=== PATIENT | male | born 1970 | race Caucasian/White ===

== ENCOUNTER 2016-12-18 08:37 | Emergency (ER) | payer OTHER ==
[~2016-12-18 08:37] MED LIST: ASPI-496 PO; BUPROPION; CLONAZEPAM PO; CYCLOBENZAPRINE PO; DIPH25CA61 PO; GABA600T2 PO; PRAV20TA2 PO
[2016-12-18] MEDS ORDERED: ASPIRIN 81 MG TABLET CHEW ONE (09:46)
[2016-12-18] MEDS ORDERED: ETOMIDATE 20 MG/10 ML ONE (11:18)
[2016-12-18] MEDS ORDERED: FENTANYL PF 100 MCG/2ML ONE (11:18)
[2016-12-19 14:50] LABS: BLOOD UREA NITROGEN 11 mg/dL (7-18); IS PT STATUS REG ER OR PRE ER? YES
== END 2016-12-18 12:30 ==
LOC: ED 08:37
DX: I48.0 Paroxysmal atrial fibrillation (principal)
CPT/HCPCS: 36415; 80048; 82040; 84439; 84443; 84484; 85025; 85610; 85730; 93005; 99285